=== PATIENT | female | born 1995 | race Caucasian/White ===

== ENCOUNTER 2016-02-23 23:45 | Emergency (ER) | payer OTHER ==
[2016-02-24] MEDS ORDERED: DIPHENOX/ATROPINE 2.5/0.025 MG TABLET PO STA (01:08)
[2016-02-24] MEDS ORDERED: KETOROLAC 30 MG/ML VIAL IVP STA (01:08)
[2016-02-24] MEDS ORDERED: ONDANSETRON 4 MG/2 ML VIAL IVP STA (01:08)
[2016-02-24] MEDS ORDERED: SODIUM CHLORIDE 0.9% 1,000 ML IV ONE ×2 (01:08)
[2016-02-24] MEDS ORDERED: KETOROLAC 30 MG/ML VIAL ONE (01:17)
[2016-02-24] MEDS ORDERED: DIPHENOX/ATROPINE 2.5/0.025 MG TABLET PO ONE (01:17)
[2016-02-24] MEDS ORDERED: ONDANSETRON 4 MG/2 ML VIAL ONE (01:17)
[2016-02-24] MEDS ORDERED: ONDANSETRON ODT 4 MG Prepack 2 TL PRN (02:57)
[2016-02-24] MEDS ORDERED: ONDANSETRON ODT 4 MG Prepack 2 TL ONE (03:13)
== END 2016-02-24 03:25 | disposition home or self-care (01) ==
DX: R11.2 Nausea with vomiting, unspecified (principal); R19.7 Diarrhea, unspecified; E86.0 Dehydration
CPT/HCPCS: 96361; 96374; 96375; 99283; 99284; A9270

== ENCOUNTER 2017-04-17 11:15 | Emergency (ER) | payer OTHER ==
[2017-04-17 11:22] VITALS: BP 119/71
[2017-04-17] MEDS ORDERED: IBUPROFEN 600 MG TABLET PO STA (12:25)
--- NOTE | 2017-04-17 12:28 | ED Physician Documentation ---
PD HPI UPPER EXT INJURY - Stated complaint Stated Complaint: RT SHOULDER/NECK PX - Chief complaint Chief Complaint: Ext Problem - History obtained from History obtained from: Patient - History of Present Illness Location: Right, Shoulder Timing - onset: How many weeks ago (1) Timing - details: Still present - Additonal information Additional information: The patient is an otherwise healthy 21-year-old active [employer] [place] female who presents with pain in her right neck and shoulder. Her pain started about one week ago after lifting boxes over her head. Her pain is worse with shoulder exercises. She is right hand dominant. She denies history of similar symptoms in the past. She is normally quite physically active, and is concerned about the long duration of her symptoms. Review of Systems Constitutional: denies: Fever Nose: denies: Congestion Throat: denies: Sore throat Cardiac: denies: Chest pain / pressure Respiratory: denies: Dyspnea, Cough GI: denies: Abdominal Pain, Vomiting Skin: denies: Rash Musculoskeletal: reports: Neck pain, Joint pain (right shoulder) Neurologic: denies: Focal weakness, Numbness, Headache PD PAST MEDICAL HISTORY - Past Medical History Past Medical History: Yes Cardiovascular: None Respiratory: None Neuro: None Endocrine/Autoimmune: None - Past Surgical History Past Surgical History: Yes HEENT: Other - Present Medications Home Medications: Ambulatory Orders Medication Instructions Recorded Confirmed Ibuprofen 600 mg PO TID PRN #30 tablet 04/17/17 Levonorgestrel [Mirena] 1 each [id number] DAILY 04/17/17 04/17/17 - Allergies Allergies/Adverse Reactions: Allergies Allergy/AdvReac Type Severity Reaction Status Date / Time No Known Drug Allergies Allergy Verified 04/17/17 11:30 - Social History Does the pt smoke?: No Smoking Status: Never smoker Does the pt drink ETOH?: Yes Does the pt have substance abuse?: No - Immunizations Immunizations are current?: Yes - POLST Patient has POLST: No PD ED PE NORMAL - Vitals Vital signs reviewed: Yes (normal) - General General: Alert and oriented X 3, Well developed/nourished - HEENT HEENT: Atraumatic, EOMI, Pharynx benign - Neck Neck: Supple, no meningeal sign, No bony TTP, No adenopathy, Other (There is tenderness to palpation along the right trapezius musculature. No tenderness to palpation of the spinous processes. She is able to fully rotate her head from [id number], but with exacerbation of the right trapezius muscle discomfort.) - Cardiac Cardiac: RRR, No murmur - Respiratory Respiratory: No respiratory distress, Clear bilaterally - Abdomen Abdomen: Soft, Non tender - Back Back: No CVA TTP, No spinal TTP - Derm Derm: No rash - Extremities Extremities: Other (There is tenderness to palpation along the right trapezius musculature, as well as the rhomboideus musculature over the superior and medial scapular region. There is no ecchymosis, or bony tenderness to palpation. She has full range of motion of her shoulder. Distal neurovascular is intact.) - Neuro Neuro: Alert and oriented X 3, No motor deficit, No sensory deficit Results - Vitals Vitals: Oxygen O2 Source Room air PD MEDICAL DECISION MAKING - ED course Complexity details: considered differential, d/w patient ED course: The patient's presentation is most consistent with acute right shoulder muscular strain. There is no clinical evidence to suggest bony abnormality, and I do not think imaging studies would be of clinical benefit. Treatment in the emergency department included administration of ibuprofen 600 mg orally. I discussed with her the expected course of injury, symptomatic treatment and outpatient follow-up, as well as potentially worrisome signs or symptoms that should prompt reevaluation in the emergency department. Departure - Departure Disposition: 01 Home, Self Care Clinical Impression: Strain of shoulder, right Qualifiers: Encounter type: initial encounter Qualified Code(s): S46.911A - Strain of unspecified muscle, fascia and tendon at shoulder and upper arm level, right arm , initial encounter Condition: Stable Instructions: ED Strain Muscle Ext Follow-Up: SONDRA Cowanfozia Pierce [Provider Group] Prescriptions: Ibuprofen 600 mg PO TID PRN #30 tablet PRN Reason: Pain Comments: Apply ice pack to your right shoulder intermittently for the next 3 days. You can use ibuprofen, up to 600 mg 3 times daily for its anti-inflammatory effect. Let pain be your guide to activity level. Follow up with your primary physician within 1-2 weeks. Call to schedule an appointment. Return to the emergency department if you develop increasing pain, or otherwise worsening symptoms. Discharge Date/Time: 04/17/17 12:45
== END 2017-04-17 12:45 | disposition home or self-care (01) ==
LOC: ED 11:15
DX: S46.911A Strain of unspecified muscle, fascia and tendon at shoulder and upper arm level, right arm, initial encounter (principal); X50.9XXA Other and unspecified overexertion or strenuous movements or postures, initial encounter
CPT/HCPCS: 99282; 99283; A9270